=== PATIENT | female | born 1970 | race Caucasian/White ===

== ENCOUNTER 2017-11-19 19:33 | Emergency (ER) | payer OTHER | END 2017-11-20 02:35 | disposition home or self-care (01) | LOC: E/R 11-20 02:35 | DX: H11.31 Conjunctival hemorrhage, right eye (principal); I10 Essential (primary) hypertension | CPT/HCPCS: 99283; Z7502 ==

== ENCOUNTER 2018-04-28 19:20 | Emergency (ER) | payer OTHER ==
[2018-04-28] MEDS: METHYLPREDNISOLONE 125 MG INJ IV (19:50)
[2018-04-28] MEDS: EPINEPHrine 1 MG INJ SC (19:50)
[2018-04-28] MEDS: FAMOTIDINE 20 MG INJ IV (19:50)
[2018-04-28] MEDS: DIPHENHYDRAMINE 50 MG INJ IV (19:50)
[2018-04-28] MEDS: SOD CHLORIDE 0.9% 1,000 ML IV (19:50)
== END 2018-04-28 23:43 | disposition home or self-care (01) ==
LOC: E/R 19:20
DX: R60.0 Localized edema (principal); R21 Rash and other nonspecific skin eruption; R06.02 Shortness of breath; I10 Essential (primary) hypertension
CPT/HCPCS: 96372; 96374; 96375; 99284-25